=== PATIENT | female | born 1990 | race African-American/Black ===

== ENCOUNTER 2020-05-05 23:45 | Emergency (ER) | payer MEDICAID ==
[~2020-05-05] VITALS: Ht 152.4 cm; Wt 99.3 kg
[2020-05-06 02:28] VITALS: BP 128/83
== END 2020-05-06 02:59 | disposition home or self-care (01) ==
LOC: ER 23:45
DX: S20.212A Contusion of left front wall of thorax, initial encounter (principal); S46.812A Strain of other muscles, fascia and tendons at shoulder and upper arm level, left arm, initial encounter; V49.9XXA Car occupant (driver) (passenger) injured in unspecified traffic accident, initial encounter; Y93.89 Activity, other specified; Y92.89 Other specified places as the place of occurrence of the external cause; Y99.8 Other external cause status
CPT/HCPCS: 70450; 71250; 72125; 73030; 73610; 74176; 99285; J7030